=== PATIENT | male | born 1960 | race Caucasian/White ===

== ENCOUNTER 2017-02-19 07:39 | Day surgery (SDC) | payer OTHER ==
[~2017-02-19] VITALS: Ht 175.3 cm; Wt 62.0 kg
[2017-02-19] MEDS ORDERED: PROP10TA6 PO (11:05)
[2017-02-19] MEDS ORDERED: LACT20SO2 PO (11:05)
[2017-02-19 12:26] VITALS: Ht 175.3 cm; Wt 62.0 kg
[2017-02-19 12:27] VITALS: BP 110/61; PULSE 66; RESP 19
[2017-02-19] MEDS ORDERED: LIDOCAINE 1% (MPF) 5 ML VIAL ONE (14:39)
[2017-02-19] MEDS ORDERED: MIDAZOLAM 1 MG/ML 2 ML INJ ONE (14:39)
[2017-02-19] MEDS ORDERED: PROPOFOL 20 ML ONE (14:39)
[2017-02-19 14:41] VITALS: BP 155/64; PULSE 73; RESP 20
--- NOTE | 2017-02-19 15:00 | OPPN ---
Date/Time of Note Date/Time of Note DATE: 02/19/17 TIME: 14:55 Proc Note GI Free Text/Dictation Preoperative Diagnosis: History of cirrhosis/esophageal varices surveillance Postoperative Diagnosis: * Grade I/IV esophageal varices * Post endoscopic variceal ligation 6 * Portal hypertensive gastropathy * Rule out H. pylori infection. Biopsies obtained Plan: * Liquid diet today * Omeprazole 40 mg daily * Review pathology as soon as available * EGD possible banding in 8 weeks Procedure Performed: EGD plus endoscopic variceal ligation EGD plus biopsies Surgeon: Chidi White MD Sales Producer: None Second Editor Farm Journal: None Anesthesia/Sedation: MAC per anesthesiologist Tourniquet Time: NA Estimated Blood Loss: 0 Transfusion Required: No Specimens: Gastric antrum Grafts/Implants: Endoscopic variceal bands Tubes/Drains: NA Complications: None Pt. Condition Post Procedure: Stable Disposition: Home After informed consent, with the patient/relatives understanding the procedure, its indications, potential risks and complications, including but not limited to : allergic reaction, bleeding, perforation or infection, and after all pertinent questions were answered to the patients satisfaction, the patient/ relatives signed witnessed informed consent. Following this, premedication was administered slowly IV push under careful cardiovascular and respiratory monitoring with pulse oximetry, automatic blood pressure, and mower operator. Once the sedative effect was achieved the patient was place in the left lateral decubitus, the panendoscope was introduced and advanced under visual control. Careful examination of the upper gastrointestinal tract, both on insertion as well as withdrawal of the instrument disclosing the following findings: ESOPHAGUS: the mucosa of the entire esophagus was carefully examined and showed the following findings: There are large grade III/IV esophageal varices. Endoscopic variceal ligation was applied 6 upon completion of the examination without complications. Otherwise the mucosa appears within normal limits. There is no evidence of esophagitis, neoplasm, or stricture. No Hiatal Hernia identified. STOMACH: Upon entrance to the stomach air was insufflated, the gastric hager distended normally. The mucosa of the fundus, body and antrum of the stomach was carefully examined both head-on and on retroflexion, and showed the following findings: The gastric mucosa shows erythema, congestion and friability consistent with portal hypertensive gastropathy. Biopsies were obtained to rule out H. pylori infection. Otherwise the mucosa appears within normal limits with no abnormalities. There is no evidence of ulcers or neoplasm. PYLORUS: The pylorus was carefully examined and showed the following findings: the pylorus appears patent and within normal limits, with no evidence of gastric outlet obstruction. DUODENUM: The duodenal mucosa was carefully examined in the duodenal bulb as well as the second portion of the duodenum and showed the following findings: the mucosa appears unremarkable with no evidence of duodenitis, ulcer or neoplasm. Procedure date: Feb 19, 2017 CHIDI WHITE MD Feb 19, 2017 15:00
[2017-02-19] MEDS ORDERED: FENTAnyl 50 MCG/ML VIAL ONE (15:19)
[2017-02-19 15:28] VITALS: BP 131/78; PULSE 60; RESP 14
== END 2017-02-19 15:37 | disposition home or self-care (01) ==
LOC: GIL 07:39
PROVIDERS: ATTEND Internal Medicine Gastroenterology
DX: I85.00 Esophageal varices without bleeding (principal); K76.6 Portal hypertension; K31.89 Other diseases of stomach and duodenum
CPT/HCPCS: 36430; 43239; 43244; 86644; 86850; 86900; 86901; 88305; 88312; J2250; J3010; P9035; Z7610

== ENCOUNTER 2017-10-10 19:38 | Emergency (ER) | END 2017-10-10 19:50 | disposition left against medical advice (07) ==

== ENCOUNTER 2017-10-11 09:42 | Day surgery (SDC) | END 2017-10-11 18:04 | disposition home or self-care (01) ==

== ENCOUNTER 2017-10-12 07:34 | Day surgery (SDC) | END 2017-10-12 17:11 | disposition home or self-care (01) ==